=== PATIENT | male | born 1985 | race Caucasian/White ===

== ENCOUNTER 2017-11-20 22:47 | Emergency (ER) | payer MEDICAID ==
[2017-11-21] MEDS ORDERED: AMOXICILLIN/CLAVULANATE POT 875/125 MG TAB PO ONE (01:00)
--- NOTE | 2017-11-21 01:02 | EDPHY ---
H & P Stated Complaint: dog bite on nose - Personal History Current Tetanus/Diphtheria Vaccine: Unsure Current Tetanus Diphtheria and Acellular Pertussis (TDAP): Unsure - Medical/Surgical History Hx Asthma: No Hx Chronic Respiratory Disease: No Hx Diabetes: No Hx Cardiac Disease: No Hx Renal Disease: No Hx Cirrhosis: No Hx Alcoholism: No Hx HIV/AIDS: No Hx Splenectomy or Spleen Trauma: No Other PMH: depression - Social History Smoking Status: Never smoked Time Seen by Provider: 11/20/17 23:15 HPI/ROS: Chief complaint: Dog bite to nose History of present illness: This is a 32-year-old male who presents to the emergency department for a dog bite to his left nostril. He was playing with a friend's dog when it bit him. The dog is reported as healthy. He has noticed a small cut to the nose. Minimal pain and bleeding. His tetanus is up-to-date. No other trauma reported. (Gabe Alvarenga) - Physical Exam Exam: General: Alert, nontoxic Skin: There is a 0.5 cm laceration the interrupts the rim of the left nostril. No other wounds noted. (Gabe Alvarenga) Constitutional: Initial Vital Signs Temperature (C) 36.7 C 11/20/17 22:55 Heart Rate 92 11/20/17 22:55 Respiratory Rate 16 11/20/17 22:55 Blood Pressure 132/88 H 11/20/17 22:55 O2 Sat (%) 95 11/20/17 22:55 O2 Delivery Mode Room Air Allergies/Adverse Reactions: No Known Allergies Allergy (Unverified 11/20/17 22:57) Home Medications: Medication Instructions Recorded Amoxicillin/Clavulanate Pot 875 mg PO BID #9 tab 11/21/17 [Augmentin 875 MG TAB (*)] Medical Decision Making Procedures: Procedure: Laceration repair. Verbal consent was obtained from the patient. The 0.5 cm laceration on the left nostril was anesthetized in the usual fashion. The wound was irrigated, draped and explored to its base with a gloved finger. There were no deep structures involved. No tendon injury was identified. The wound was repaired with 6-0 Prolene, 3 simple interrupted sutures. The wound repair was moderately complex wound repair requiring reapproximation of a cosmetically important structure. The procedure was performed by myself. (Gabe Alvarenga) ED Course/Re-evaluation: Patient seen under the supervision of my secondary supervising physician Dr. Vangie Granados. Patient presents for a dog bite to his left nostril. The dog and the patient are healthy. His immunizations are up-to-date. Superficial wound but it is cosmetically important. It is cleaned and repaired. He is placed on antibiotics given this is an animal bite and does involve the nostril. Home care is discussed. Return precautions are given. (Gabe Alvarenga) PHYSICIAN DOCUMENTATION: The patient was evaluated and managed by the Physician Product Sales Engineer. My co- signature indicates that I have reviewed this chart and I agree with the findings and plan of care as documented. I am the secondary supervising physician. (Vangie Granados) - Data Points Medications Given: Discontinued Medications Amoxicillin/Clavulanate Potassium (Augmentin 875mg) 875 mg PO EDNOW ONE PRN Reason: Protocol Stop: 11/21/17 01:01 Last Admin: 11/21/17 01:12 Dose: 875 mg Departure - Departure Disposition: Home, Routine, Self-Care Clinical Impression: Dog bite of nose Qualifiers: Encounter type: initial encounter Qualified Code(s): S01.25XA - Open bite of nose, initial encounter Condition: Good Instructions: Animal Bite (ED) Additional Instructions: Follow-up with a primary care doctor or plastic surgeon for continued evaluation and care Stitches to be removed in 5-7 days If symptoms worsen or new symptoms develop return to the emergency room for recheck Referrals: NONE *PRIMARY CARE P,. [Primary Care Provider] - As per Instructions [facility],. [Clinic] - As per Instructions Luba You JR, MD [Medical Doctor] - As per Instructions Prescriptions: Amoxicillin/Clavulanate Pot [Augmentin 875 MG TAB (*)] 875 mg PO BID #9 tab
[2017-11-21 01:21] VITALS: BP 138/87
== END 2017-11-21 01:19 | disposition home or self-care (01) ==
PROC: 09QKXZZ Repair Nasal Mucosa and Soft Tissue, External Approach (ICD-10-PCS; principal; 2017-11-20)
DX: S01.25XA Open bite of nose, initial encounter (principal); W54.0XXA Bitten by dog, initial encounter; Y99.8 Other external cause status